=== PATIENT | male | born 1990 | race Two or more races ===

== ENCOUNTER 2016-08-17 12:25 | Emergency (ER) | payer MEDICAID, OTHER ==
[~2016-08-17] VITALS: Ht 177.8 cm; Wt 99.8 kg
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
[2016-08-17] MEDS ORDERED: LIDOCAINE 2%-EPI 1:100,000 30 ML VIAL ONE (13:40)
[2016-08-17 14:22] VITALS: BP 129/74
== END 2016-08-17 14:23 | disposition home or self-care (01) ==
LOC: ER 12:26
DX: S61.012A Laceration without foreign body of left thumb without damage to nail, initial encounter (principal); I10 Essential (primary) hypertension; W26.0XXA Contact with knife, initial encounter; Y93.89 Activity, other specified; Y92.89 Other specified places as the place of occurrence of the external cause; Y99.8 Other external cause status
CPT/HCPCS: 29125; 73140; 99284; A4606; A6403; Z7610